=== PATIENT | male | born 1970 | race Caucasian/White ===

== ENCOUNTER 2019-12-18 13:03 | Outpatient (CLI) | payer BC, SELFPAY ==
--- NOTE | ~2019-12-18 | XR_ITS ---
EXAMINATION: XR knee RT 3V DATE: 12/18/2019 13:55 INDICATION: Right knee pain. TECHNIQUE: 3 views of right knee were obtained. COMPARISON: None. FINDINGS: Bone alignment is normal. No fracture. There is mild tricompartmental osteoarthritis. There is a small knee joint effusion. IMPRESSION: 1. Mild right knee osteoarthritis. 2. Small right knee joint effusion. Reviewed, dictated and finalized at location A.
== END 2019-12-18 13:04 | disposition home or self-care (01) ==
PROVIDERS: PCP Family Medicine; Visit Provider Family Medicine
DX: M25.561 Pain in right knee (principal)
CPT/HCPCS: 73562

== ENCOUNTER 2020-03-28 08:09 | Outpatient (CLI) | payer BC, SELFPAY ==
--- NOTE | 2020-03-28 08:30 | ECG_ITS ---
Measurements Intervals [place] Rate: 69 P: 14 ND: 175 QRS: 92 QRSD: 106 T: 36 QT: 425 QTc: 457 Interpretive Statements SINUS RHYTHM RIGHT AXIS DEVIATION INCOMPLETE RIGHT BUNDLE BRANCH BLOCK DELAYED PRECORDIAL R/S TRANSITION BORDERLINE ECG Electronically Signed On 03-28-2020 9:58:25 CDT by Danilo Bhatt D.O.
[2020-03-28 08:55] LABS: Anion Gap 6 mmol/L (8-16); Blood Urea Nitrogen 12 mg/dL (7-18); Calcium 9.1 mg/dL (8.5-10.1); Carbon Dioxide 30 mmol/L (21-32); Chloride 103 mmol/L (98-108); Estimated Glomerular Filt Rate > 60; Glucose 128 mg/dL (70-99); Osmolality Calculated 289 mOsm/kg (285-295); Potassium 5.1 mmol/L (3.5-5.1); Sodium 139 mmol/L (136-145)
== END 2020-03-28 08:10 | disposition home or self-care (01) ==
LOC: CHSLAB 08:12
PROVIDERS: PCP Family Medicine; Visit Provider Anesthesiology
DX: E78.00 Pure hypercholesterolemia, unspecified (principal); E11.9 Type 2 diabetes mellitus without complications
CPT/HCPCS: 36415; 80048; 93005

== ENCOUNTER 2020-03-30 00:35 | Outpatient (CLI) | payer BC, SELFPAY ==
[2020-04-01 12:20] LABS: SARS-CoV-2 RNA PCR Negative
== END 2020-03-30 00:36 | disposition home or self-care (01) ==
LOC: ANHCOVIDDT 00:35
PROVIDERS: PCP Family Medicine; Visit Provider Orthopaedic Surgery
DX: Z01.812 Encounter for preprocedural laboratory examination (principal); Z20.828 Contact with and (suspected) exposure to other viral communicable diseases
CPT/HCPCS: 87635; C9803; U0003

== ENCOUNTER 2020-04-02 01:47 | Day surgery (SDC) | payer BC, SELFPAY ==
[2020-03-20 15:09] VITALS: BMI 44.8
--- NOTE | 2020-04-01 12:36 | WPDANESEPPF ---
Anes - Initial Pre Proc Eval Procedure: Operation Date: 04/02/20 12:00 Proposed Procedures p Right Knee Arthroscopy, Proceed As Indicated - Chema Marinelli MD Date/Time: 04/01/20 12:36 Surgeon: Chema Marinelli MD Pre Op Diagnosis: right medial meniscal tear, right lateral medial Patient Data Age: 49 Gender: M Height: 5 ft 8 in Weight: 133.81 kg Allergies Allergy/AdvReac Type Severity Reaction Status Date / Time No Known Allergies Allergy Verified 03/21/20 09:23 Home Medications Medication Instructions Recorded Confirmed Type chlorhexidine gluconate 4 % 1 applic TOPICAL ONCE #237 ml 02/12/20 03/21/20 Rx topical liquid Juice Plus 5 ea PO DAILY 03/20/20 03/21/20 History metformin 500 mg PO BID 03/20/20 03/21/20 History rosuvastatin 20 mg PO DAILY 03/20/20 03/21/20 History PMFSH Social History Social History Smoking packs per day: 0.5 Smoking cigarettes per day: 10.0 Years smoked: 25 Smoking pack-years: 12.50 Smoking status: Never smoker Tobacco type: cigarettes Smokeless tobacco user: chewing tobacco Additional smoking assessment comments: CHEWING TOBACCO X 40 YEARS Alcohol intake: current Drinks per week: 20 Spiritual care concerns: No Anes - Eval Final PreProcedure Day of Procedure 04/01/20 12:36 Informed Consent: The patient's anesthetic plan and its attendant risks and benefits were discussed with the patient/family/POA. Questions were solicited and answers provided to the satisfaction of the patient/family/POA.
[2020-04-02] VITALS (8 sets, daily range): BP systolic 111–193; BP diastolic 53–104; PULSE 66–84; RESP 12–18; TEMP 36.5–36.8; O2SAT 96–100
[2020-04-02 10:33] LABS: Glucose Point of Care 107 (65-105)
[2020-04-02] MEDS: LACTATED RINGERS 1,000 ML 30 ML IV CONT ×2 (10:40→14:07)
[2020-04-02] MEDS: ACETAMINOPHEN 500 MG TABLET 1000 MG PO (10:50)
[2020-04-02] MEDS: CELECOXIB 200 MG CAPSULE PO (10:50)
--- NOTE | 2020-04-02 11:29 | WPDANESEPPF ---
Anes - Initial Pre Proc Eval Procedure: Operation Date: 04/02/20 12:00 Proposed Procedures p Right Knee Arthroscopy, Proceed As Indicated - Chema Marinelli MD Date/Time: 04/02/20 11:29 Surgeon: Chema Marinelli MD Pre Op Diagnosis: right medial meniscal tear, right lateral medial Patient Data Age: 49 Gender: M Height: 5 ft 8 in Weight: 138.2 kg Allergies Allergy/AdvReac Type Severity Reaction Status Date / Time No Known Allergies Allergy Verified 04/02/20 10:32 Home Medications Medication Instructions Recorded Confirmed Type Juice Plus 5 ea PO DAILY 03/20/20 04/02/20 History metformin 500 mg PO BID 03/20/20 04/02/20 History rosuvastatin 20 mg PO DAILY 03/20/20 04/02/20 History Laboratory Tests 04/02/20 10:28 POC Capillary Glucose 107 mg/dl mg/dl (65-105) Patient hx anesthesia problems: none Family hx anesthesia problems: none PMFSH Past Medical History Medical History Diabetes Discoid lateral meniscus of right knee Hyperlipidemia Medial meniscus tear PEREZ (obstructive sleep apnea) Right knee DJD Vision abnormalities Surgical History Surgical History History of lumbar surgery History of shoulder surgery Bilateral Family History Family History Other Arthritis Diabetes mellitus Hypertension Social History Social History Smoking packs per day: 0.5 Smoking cigarettes per day: 10.0 Years smoked: 25 Smoking pack-years: 12.50 Smoking status: Never smoker Tobacco type: cigarettes Smokeless tobacco user: chewing tobacco Additional smoking assessment comments: CHEWING TOBACCO X 40 YEARS Alcohol intake: current Drinks per week: 20 Spiritual care concerns: No Anes - Eval Final PreProcedure Day of Procedure 04/02/20 11:29 Patient weight: morbidly obese Heart: regular rate and rhythm Lungs: clear to auscultation Airway: Mallampati scale class III Neurological: alert and oriented Last oral intake: >/= 8 hours ASA classification: III Emergent: no Anesthetic plan: proceed Anesthesia type and monitoring: general LMA and standard monitoring Informed Consent: The patient's anesthetic plan and its attendant risks and benefits were discussed with the patient/family/POA. Questions were solicited and answers provided to the satisfaction of the patient/family/POA.
--- NOTE | 2020-04-02 12:29 | WPDHPUPDATE1 ---
History and Physical Update Update Date/Time: 04/02/20 12:29 History and Physical has been reviewed, including an updated exam of the patient. There are NO changes in the patient's condition. Risks, benefits, and alternatives have been discussed and questions answered. Patient agrees to proceed with procedure.
[2020-04-02] MEDS: ceFAZolin 3 GM/D5W 100 ML 100 ML IVPB (12:35)
[2020-04-02] MEDS: methylPREDNISolone ACETATE 80 MG/ML VIAL IM (13:12)
--- NOTE | 2020-04-02 13:16 | SUR.PREOP ---
1200 PT UPDATED ON SURGERY TIME DELAY.
--- NOTE | 2020-04-02 14:06 | PM.PROC ---
Procedure Note - Detailed Date of procedure: 04/02/20 Pre-op diagnosis: right medial meniscal tear, right lateral medial Post-op diagnosis: same Procedure performed: RIGHT KNEE SCOPE WITH PARTIAL medial MENISCECTOMY AND MAJOR SYNOVECTOMY Description of procedure: PATIENT WAS TAKEN TO THE OR. RIGHT LEG WAS PREPPED AND DRAPED STERILE. TROCARS WERE PLACED IN THE USUAL FASHION. CAMERA WAS INTRODUCED. THERE WAS GRADE 3 CHONDROMALACIA TO THE PATELLA FEMORAL JOINT. THERE WAS A LOT OF SYNOVITIS IN ALL COMPARTMENTS. THE MEDIAL COMPARTMENT SHOWED CHONDROMALACIA TO THE MED FEMORAL CONDYLE. A MEDIAL PORTAL WAS ESTABLISHED.A SHAVER WAS USED TO PREFORM A CHONDROPLASTY. THERE WAS A COMPLEX MEDIAL MENISCUS TEAR. THE TEAR WAS RESECTED AND WAS SMOOTHED DOWN TO A STABLE BASE. THE ACL WAS INTACT. THE LATERAL MENISCUS WAS NOT TORN. THERE WAS A 2 CM CHONDRAL FLAP AT THE LATERAL FEMORAL CONDYLE. THE LAT FEMORAL CONDYLE UNDERWENT CHONDROPLASTY. A SYNOVECTOMY WAS PREFORMED. THE PATELLO FEMORAL JOINT UNDERWENT CHONDROPLASTY. SYNOVECTOMY WAS PREFORMED IN THE SUPERIOR MEDIAL COMPARTMENT. THE WOUNDS WERE APPROXIMATED WITH 4.0 NYLON. STERILE DRESSING WAS APPLIED. PATIENT WAS EXTUBATED. Anesthesia: GLMA Surgeon: Chema Marinelli MD Estimated blood loss (mL): 5 Complications: No immediate complications Condition: stable Disposition: PACU
[2020-04-02 14:40] LABS: Glucose Point of Care 117 (65-105)
--- NOTE | 2020-04-02 16:14 | SUR.PHASEII ---
1545 PT DRESSING; AWAITING SURGEON TO SIGN PRESCRIPTION.
== END 2020-04-02 17:00 | disposition home or self-care (01) ==
PROVIDERS: PCP Family Medicine; Visit Provider Orthopaedic Surgery
PROC: (CPT 29870; principal; 2020-04-02 12:00)
DX: M23.331 Other meniscus derangements, other medial meniscus, right knee (principal); M94.261 Chondromalacia, right knee; M65.861 Other synovitis and tenosynovitis, right lower leg; E78.5 Hyperlipidemia, unspecified; E11.9 Type 2 diabetes mellitus without complications; R03.0 Elevated blood-pressure reading, without diagnosis of hypertension; G47.33 Obstructive sleep apnea (adult) (pediatric); L30.9 Dermatitis, unspecified; F17.220 Nicotine dependence, chewing tobacco, uncomplicated; Z79.84 Long term (current) use of oral hypoglycemic drugs; E66.01 Morbid (severe) obesity due to excess calories; Z68.42 Body mass index [BMI] 45.0-49.9, adult
CPT/HCPCS: 29881; 29876; A9270; J0690; J1040; J2250; J2405; J2704; J3010; J7120

== ENCOUNTER 2020-04-18 08:54 | Outpatient (RCR) | payer BC, SELFPAY ==
--- NOTE | 2020-04-18 09:49 | PTOPEVAL ---
Thank you for referring En Hart JrKaela to [facility] [place].? The patient is scheduled to be seen for therapy? __3__x/week for __12 visits. Please review, sign, date and return this plan of care DEXTER. I agree with and certify that the following plan of care is medically necessary. Referring Physician Date Admitting Provider: Attending Provider: Chema Marinelli MD Referring Provider: *PT Outpatient Evaluation Start: 04/18/20 08:56 Freq: Status: Active Protocol: Document 04/18/20 08:57 [email or web address] (Rec: 04/18/20 09:48 MORENITA [email or web address]) Therapy Assessment Status Assessment Status Assessment Status Evaluation Outpatient Past Medical History Neurological History Hx Neurological Disorders No Significant History Cardiovascular History Hx Hypercholesterolemia Yes Respiratory History Hx Sleep Apnea Yes: SUSPECTED Gastrointestinal History Hx Gastrointestinal Disorders No Significant History Genitourinary History Hx Genitourinary Disorders No Significant History Musculoskeletal History Hx Arthritis Yes Hx Orthopedic Surgery Yes: BILATERAL SHOULDER RTC REPAIR Hx Spinal Surgery Yes: LOWER BACK SURGERY- METAL IMPLANTED Hx Other Musculoskeletal Disorders Yes: RT KNEE MENISCUS TEAR Hematological History Hx Hematological Disorders No Significant History Endocrine History Hx Diabetes Yes: PRE-DIABETIC HEENT History Hx HEENT Disorders No Significant History Integumentary History Hx Eczema Yes Reproductive History Hx Reproductive Disorders No Significant History Psychosocial History Hx Psychiatric Disorders No Significant History Pain History History of Any Previous or Ongoing No Significant History Instance of Pain Anesthesia History Hx Anesthesia Reactions No Significant History Evaluation Information Problem Diagnosis right knee arthroscopy Onset 04/02/20 Subjective Information Pt. reports that he injured Query Text:As Reported By Patient/ his knee initially in December while walking. He reports that he underwent a knee scope 2 weeks ago. He reports that knee is better since surgery. He states that he still is experiencing some stiffness in the right knee and pain. He reports difficulty with stairs , walking up and down. He reports that his goal is to be able to return to work. Pain Assessment Pain Scale
== END 2020-05-17 11:13 | disposition home or self-care (01) ==
LOC: CHSPT 08:54
PROVIDERS: PCP Family Medicine; Visit Provider Orthopaedic Surgery
DX: Z98.890 Other specified postprocedural states (principal)
CPT/HCPCS: 97014; 97016; 97110; 97140; 97161; G0283